=== PATIENT | female | born 1970 | race Caucasian/White ===

== ENCOUNTER 2020-05-05 23:06 | Emergency (ER) | payer OTHER ==
[2020-05-05] MEDS ORDERED: ONDANSETRON 4 MG/2 ML VIAL ONE (23:39)
[2020-05-05] MEDS ORDERED: NA CHLORIDE 0.9% 1,000 ML ONE (23:39)
[2020-05-05] MEDS ORDERED: MORPHINE 4 MG/ML SYR ONE (23:39)
[2020-05-06] MEDS ORDERED: MORPHINE 4 MG/ML SYR ONE (00:36)
--- NOTE | 2020-05-06 02:08 | EDPHYS ---
Physician Documentation [facility] Name: Parul Cid Age: 49 yrs Sex: Female : 1970 Arrival Date: 05/05/2020 Time: 23:06 Bed 8 Private MD: ED Physician Julius Pacheco HPI: 05/06 00:08 This 49 yrs old Female presents to ER via EMS with unknown complaint. pkl 00:08 The patient presents with decreased range of motion, a deformity, an injury, pain, that pkl is acute. The complaints affect the right ankle. Onset: The symptoms/episode began/occurred just prior to arrival, 1 hour(s) ago. 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 - Social history:: Smoking status: Patient denies any tobacco usage or history of. ROS: 05/06 00:08 Eyes: Negative for injury, pain, redness, and discharge, ENT: Negative for injury, pkl pain, and discharge, Neck: Negative for injury, pain, and swelling, Cardiovascular: Negative for chest pain, palpitations, and edema, Respiratory: Negative for shortness of breath, cough, wheezing, and pleuritic chest pain, Abdomen/GI: Negative for abdominal pain, nausea, vomiting, diarrhea, and constipation, Back: Negative for injury and pain, : Negative for injury, bleeding, discharge, and swelling, Skin: Negative for injury, rash, and discoloration, Neuro: Negative for headache, weakness, numbness, tingling, and seizure. MS/extremity: Positive for injury or acute deformity, decreased range of motion, deformity, pain, tenderness. Exam: 00:08 Head/Face: Normocephalic, atraumatic. Eyes: Pupils equal round and reactive to light, pkl extra-ocular motions intact. Lids and lashes normal. Conjunctiva and sclera are non-icteric and not injected. Cornea within normal limits. Periorbital areas with no swelling, redness, or edema. ENT: Nares patent. No nasal discharge, no septal abnormalities noted. Tympanic membranes are normal and external auditory canals are clear. Oropharynx with no redness, swelling, or masses, exudates, or evidence of obstruction, uvula midline. Mucous membranes moist. Neck: Trachea midline, no thyromegaly or masses palpated, and no cervical lymphadenopathy. Supple, full range of motion without nuchal rigidity, or vertebral point tenderness. No Meningismus. Chest/axilla: Normal chest wall appearance and motion. Nontender with no deformity. No lesions are appreciated. Cardiovascular: Regular rate and rhythm with a normal S1 and S2. No gallops, murmurs, or rubs. Normal PMI, no JVD. No pulse deficits. Respiratory: Lungs have equal breath sounds bilaterally, clear to auscultation and percussion. No rales, rhonchi or wheezes noted. No increased work of breathing, no retractions or nasal flaring. Abdomen/GI: Soft, non-tender, with normal bowel sounds. No distension or tympany. No guarding or rebound. No evidence of tenderness throughout. Back: No spinal tenderness. No costovertebral tenderness. Full range of motion. Skin: Warm, dry with normal turgor. Normal color with no rashes, no lesions, and no evidence of cellulitis. Neuro: Awake and alert, GCS 15, oriented to person, place, time, and situation. Cranial nerves II-XII grossly intact. Motor strength 5/5 in all extremities. Sensory grossly intact. Cerebellar exam normal. Normal gait. 00:08 Musculoskeletal/extremity: Extremities: grossly normal except: noted in the right ankle: pain, tenderness, decreased ROM, deformity. Vital Signs: 05/05 23:06 BP 165 / 103; Pulse 97; Resp 18; Temp 99.1; Pulse Ox 99% ; Weight 81.65 kg; Height 5 rv ft. 5 in. (165.10 cm); Pain 1010; 05/06 01:09 BP 118 / 66; Pulse 87; Resp 18; Temp 98.7; Pulse Ox 95% ; ea 02:45 BP 124 / 80; Pulse 80; Resp 18; Temp 98.5(TE); Pulse Ox 99% on R/A; ea 05/05 23:06 Body Mass Index 29.95 (81.65 kg, 165.10 cm) rv Procedures: 01:58 Performed Closed reduction of fractures and subluxation right ankle joint. Post pkl reduction X' rays satisfactory. Short leg splints applied. Patient feeling better. MDM: 05/05 23:08 Patient medically screened. pkl 05/06 01:58 Data reviewed: vital signs, nurses notes, radiologic studies, plain films. ED course: [facility] Talked to Dr. Roger, to splint the ankle and will follow up patient in the office on Saturday. Patient request transfer to [facility]. Talked to Dr. Beard ( Orthopedist at [facility] ). Accepted transfer to [facility]. 05/05 23:24 Order name: Tib Fib Right XRAY pkl 05/05 23:27 Order name: Ankle Right 2 View XRAY pkl 05/06 00:37 Order name: Ankle Right 2 View XRAY ea 05/06 00:49 Order name: Ankle Left 3 View EDMS Administered Medications: 05/05 23:29 Drug: morphine 4 mg Route: IVP; Site: right antecubital; rv 05/06 00:47 Follow up: Response: No adverse reaction rv 00:47 Follow up: Response: Pain is decreased; RASS: Alert and Calm (0) rv 05/05 23:29 Drug: Zofran (Ondansetron) 4 mg Route: IVP; Site: right antecubital; rv 05/06 00:47 Follow up: Response: No adverse reaction rv 05/05 23:30 Drug: NS 0.9% 1000 ml Route: IV; Rate: 125 ml/hr; Site: right antecubital; rv 05/06 00:30 Drug: morphine 4 mg Route: IVP; Site: right antecubital; rv 01:30 Follow up: Response: No adverse reaction; Pain is decreased ea 02:30 Drug: morphine 2 mg {Note: rass 0.} Route: IVP; Site: right antecubital; ea 02:50 Follow up: Response: No adverse reaction ea Disposition: 05/06/20 02:07 Transfer ordered to [facility]. Diagnosis is Trimalleolar fractures right ankle with subluxation right ankle joint.. - Reason for transfer: Higher level of care. - Accepting physician is Dr. Beard. - Condition is Stable. - Problem is new. - Symptoms have improved. Signatures: Dispatcher [employer] EDMS Julius Pacheco MD MD pkl Janiya Forte, RN RN Alexi Armas, RN RN rv Corrections: (The following items were deleted from the chart) 02:52 02:07 05/06/2020 02:07 Transfer ordered to [facility]. Diagnosis is ea Trimalleolar fractures right ankle with subluxation right ankle joint.. Reason for transfer: Higher level of care. Accepting physician is Dr. Beard. Condition is Stable. Problem is new. Symptoms have improved. pkl
--- NOTE | 2020-05-06 02:08 | ER ---
Nurse's Notes [facility] Name: Parul Cid Age: 49 yrs Sex: Female : 1970 Arrival Date: 05/05/2020 Time: 23:06 Bed 8 Private MD: Diagnosis: Trimalleolar fractures right ankle with subluxation right ankle joint. Presentation: 05/05 23:06 Chief complaint: Patient states: PAIN IS 10/10. EMS states: PATIENT WAS STEPPING OUT OF THE BATHROOM AWKWARDLY WITH THE RIGHT FOOT. NOTED SWELLING BUT NO OBVIOUS DEFORMITY. Coronavirus screen: Client denies travel out of the [place] in the last 14 days. At this time, the client does not indicate any symptoms associated with coronavirus-19. Ebola Screen: No symptoms or risks identified at this time. Initial Sepsis Screen: Does the patient meet any 2 criteria? No. Patient's initial sepsis screen is negative. Does the patient have a suspected source of infection? No. Patient's initial sepsis screen is negative. Risk Assessment: Do you want to hurt yourself or someone else? Patient reports no desire to harm self or others. 23:06 Method Of Arrival: EMS: [facility] 23:06 Acuity: ROSE 3 rv 23:10 Onset of symptoms was May 05, 2020. rv Triage Assessment: 23:08 General: Appears comfortable, Behavior is calm, cooperative. Pain: Complains of pain in rv right foot and right ankle. EENT: No signs and/or symptoms were reported regarding the EENT system. Neuro: Level of Consciousness is awake, alert, obeys commands, Oriented to person, place, time, situation. Cardiovascular: Patient's skin is warm and dry. Respiratory: Airway is patent Respiratory effort is even, unlabored. Derm: Skin is intact. Musculoskeletal: Swelling present in right ankle. 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 - Social history:: Smoking status: Patient denies any tobacco usage or history of. Screenin:09 Abuse screen: Denies threats or abuse. Denies injuries from another. Nutritional rv screening: No deficits noted. Tuberculosis screening: No symptoms or risk factors identified. Fall Risk Fall in past 12 months (25 points). No secondary diagnosis (0 pts). No IV (0 pts). Ambulatory Aid- None/Bed Rest/Nurse Assist (0 pts). Gait- Normal/Bed Rest/Wheelchair (0 pts) Mental Status- Oriented to own ability (0 pts). Total Renner Fall Scale indicates No Risk (0-24 pts). Assessment: 05/06 01:07 Reassessment: Patient and/or family updated on plan of care and expected duration. Pain ea level reassessed. Patient is alert, oriented x 3, equal unlabored respirations, skin warm/dry/pink. 02:51 Reassessment: Patient and/or family updated on plan of care and expected duration. Pain ea level reassessed. Patient is alert, oriented x 3, equal unlabored respirations, skin warm/dry/pink. [facility] at facility for transfer, report given to EMS. Pt left ED via stretcher per EMS. Pt tolerating well. Vital Signs: 05/05 23:06 BP 165 / 103; Pulse 97; Resp 18; Temp 99.1; Pulse Ox 99% ; Weight 81.65 kg; Height 5 rv ft. 5 in. (165.10 cm); Pain 02/12; 05/06 01:09 BP 118 / 66; Pulse 87; Resp 18; Temp 98.7; Pulse Ox 95% ; ea 02:45 BP 124 / 80; Pulse 80; Resp 18; Temp 98.5(TE); Pulse Ox 99% on R/A; ea 05/05 23:06 Body Mass Index 29.95 (81.65 kg, 165.10 cm) rv ED Course: 05/05 23:06 Patient arrived in ED. rv 23:07 Julius Pacheco MD is Attending Physician. pkl 23:08 Triage completed. rv 23:09 Arm band placed on right wrist. Patient placed in the treatment room, on a stretcher, rv Patient notified of wait time. 23:10 Patient has correct armband on for positive identification. Bed in low position. Call rv light in reach. Pulse ox on. NIBP on. 23:11 Alexi Rutherford RN is Primary Nurse. rv 23:25 Inserted saline lock: 22 gauge in right antecubital area, using aseptic technique. ds4 23:59 Tib Fib Right XRAY In Process Unspecified. EDMS 23:59 Ankle Right 2 View XRAY In Process Unspecified. EDMS 05/06 00:35 Initiated transfer at [facility] with Pam Dozier. tt3 00:44 Assist provider with fracture care of right ankle Fracture is closed. Obvious deformity rv is not noted. Circulation, motor and sensation is intact. Set up for procedure. Performed by Julius Pacheco MD Reduced with physical manipulation. Immobilized with cast Post immobilization, circulation, motor and sensation remain intact. Patient tolerated well. 00:46 Pam Dozier called back to verify some information and requested a face sheet be faxed tt3 to . She also connected their ortho surgeon with Dr. Pacheco. 00:52 Ankle Right 2 View XRAY In Process Unspecified. EDMS 00:52 Ankle Left 3 View In Process Unspecified. EDMS 01:06 Pam Dozier called back to verify that the face sheet was faxed and to also speak with tt3 the patients nurse. 01:59 Pam Durán called back with admin approval. The accepting physician is Dr. Desi Beard. tt3 The pt is going to [facility] ER. Face sheet faxed to per Pam's request. Nurse to call report to [phone]. 02:16 Spoke with Gerri with [facility] and she stated that a truck should be back soon tt3 and she would have that truck come to transfer the patient. Information regarding the transfer was provided to Gerri. 02:40 [facility] arrived to transfer the pt. tt3 02:51 Patient transferred, IV remains in place. ea Administered Medications: 05/05 23:29 Drug: morphine 4 mg Route: IVP; Site: right antecubital; rv 05/06 00:47 Follow up: Response: No adverse reaction rv 00:47 Follow up: Response: Pain is decreased; RASS: Alert and Calm (0) rv 05/05 23:29 Drug: Zofran (Ondansetron) 4 mg Route: IVP; Site: right antecubital; rv 05/06 00:47 Follow up: Response: No adverse reaction rv 05/05 23:30 Drug: NS 0.9% 1000 ml Route: IV; Rate: 125 ml/hr; Site: right antecubital; rv 05/06 00:30 Drug: morphine 4 mg Route: IVP; Site: right antecubital; rv 01:30 Follow up: Response: No adverse reaction; Pain is decreased ea 02:30 Drug: morphine 2 mg {Note: rass 0.} Route: IVP; Site: right antecubital; ea 02:50 Follow up: Response: No adverse reaction ea Outcome: 02:07 ER care complete, transfer ordered by MD. cramer 02:51 Transferred by ground EMS to [facility], Transfer form completed. X-rays sent ea w/ patient. 02:51 Condition: stable 02:51 Discharge instructions given to patient, Instructed on the need for transfer. 02:52 Patient left the ED. ea Signatures: Dispatcher [employer] Julius Shelton MD MD pkl Swanson, Donovan ds4 Janiya Forte RN Alexi Thornton ea RN SONIYA Dimitri Blanton tt3
[2020-05-06] MEDS ORDERED: MORPHINE 2 MG/ML SYR ONE (02:31)
[2020-05-06 03:20] VITALS: BP 124/80; TEMP 98.5; O2SAT 99
--- NOTE | 2020-05-06 09:35 | RAD REPORT ---
EXAM DESCRIPTION: RAD - Tib Fib Right - 05/05/2020 11:58 pm CLINICAL HISTORY: fall;Pain COMPARISON: No remote imaging FINDINGS: Distal tib-fib fracture changes are separately reported on the ankle examination. Proximal tibia and fibula at the knee joint are intact with no shaft abnormality proximal to the fracture. No foreign body or other soft tissue abnormality. IMPRESSION: Distal tib-fib fracture changes are separately detailed. Remainder of the right tib-fib without significant finding.
--- NOTE | 2020-05-06 09:38 | RAD REPORT ---
EXAM DESCRIPTION: RAD - Ankle Right 2 View - 05/05/2020 11:58 pm CLINICAL HISTORY: PAIN, fall COMPARISON: No remote imaging FINDINGS: Distal fibula fracture is present extending from the distal shaft into the metaphysis 1 ce ntimeter proximal to the tibiotalar joint line. Very minimal posterior displacement along the fractur e line. No angulation deformity. Transverse fracture of the medial malleolus is present without displacement. There is widening of the tibiotalar joint space on the lateral margin. Posterior malleolus fracture is present displaced supe riorly approximately 5 mm. There is posterior displacement of the dome of the talus without a complet e dislocation. Soft tissue swelling is present around the ankle joint. IMPRESSION: Right ankle trimalleolar fracture with partial posterior dislocation of the talus.
--- NOTE | 2020-05-06 09:46 | RAD REPORT ---
EXAM DESCRIPTION: RAD - Ankle Right 2 View - 05/06/2020 12:51 am CLINICAL HISTORY: post reduction, right ankle trimalleolar fracture COMPARISON: Ankle Right 2 View dated 05/05/2020 FINDINGS: Cast material has been placed. The partial dislocation of the talar dome has been reduced. Posterior malleolus mild displacement remains. There is slight lateral displacement of the dome of t he talus relative to the tibial plafond. Medial malleolus remains in good position. Fibula fracture f ragments not significantly different. IMPRESSION: Post reduction tri malleolus fracture changes as detailed.
--- NOTE | 2020-05-06 09:48 | RAD REPORT ---
EXAM DESCRIPTION: RAD - Ankle Left 3 View - 05/06/2020 12:53 am CLINICAL HISTORY: S/P FALL COMPARISON: No comparisons FINDINGS: No fracture, dislocation or periosteal reaction. Small bone density at the tip of the medi al malleolus is not seen as an acute process. No joint space narrowing. No soft tissue abnormality. IMPRESSION: Soft tissue swelling without fracture identifiable.
== END 2020-05-06 02:52 | disposition short-term general hospital (02) ==
LOC: ER 23:06
PROC: 0QSGXZZ Reposition Right Tibia, External Approach (ICD-10-PCS; principal; 2020-05-06)
PROC: 0QSGXZZ Reposition Right Tibia, External Approach (ICD-10-PCS; 2020-05-06)
PROC: 0QSJXZZ Reposition Right Fibula, External Approach (ICD-10-PCS; 2020-05-06)
DX: S82.851A Displaced trimalleolar fracture of right lower leg, initial encounter for closed fracture (principal); W18.30XA Fall on same level, unspecified, initial encounter; Y93.89 Activity, other specified; Y92.9 Unspecified place or not applicable; I10 Essential (primary) hypertension
CPT/HCPCS: 73590; 73610; 73600 ×2; 96375; 96374; 99285; 27818; J2270; J7030; J2405